=== PATIENT | female | born 1970 | race Caucasian/White ===

== ENCOUNTER 2017-04-06 19:52 | Emergency (ER) | payer OTHER, MEDICAID ==
[~2017-04-06] VITALS: Ht 162.6 cm; Wt 75.8 kg
[~2017-04-06 19:52] MED LIST: ACETAMINOPHEN-120 ML PO; ACETAMINOPHEN325 M1 PO; ADVAIR 250-501 EACH IH; AEROECLIPSE II1 EACH MC; AFRIN MENTHOL S15 ML NS; ALBUTEROL INH; ALBUTEROL2.5 MG/0.1 INH; ALBUTEROL2.5 MG/31 INH; ALL DAY ALLERGY10 M3 PO; ALLERGY RELIEF25 M2 PO; ALPRAZOLAM 0.0.25 M1 PO; AMOXICILLIN 50500 MG PO; AMOXICILLIN/POTASSIU PO; AMOXICILLIN875 MG PO; APAP/CODEINE ELI5 M1 OR; ATIVAN1 MG PO; AUGMENTIN 500-1 EACH PO; AUGMENTIN 875875 MG PO; AZITHROMYCIN 2250 MG PO; BENADRYL25 MG PO; BENTYL20 MG PO; CALCIUM ACETAT667 MG PO; CARISOPRODOL 3350 MG PO; CEFDINIR300 MG PO; CEPHALEXIN 500500 M3 PO; CIPRO HC OTIC S10 ML OT; CIPRO250 M1 PO; CIPRO500 MG PO; CIPRO500 MG/5 M PO; CIPROFLOXACIN500 M1 PO; CIPROFLOXIN HC2.5 M1 OTIC; CLEOCIN HCL150 MG PO; COLACE 100 MG100 MG PO; COLACE100 MG PO; COMBIVENT INH; CORTISPORIN OTI10 ML OT; COUMADIN 5 MG TA5 M1 PO; DELSYM30 MG/5 ML PO; DIFLUCAN; DIFLUCAN150 M1 PO; DOXYCYCLINE 10100 M1; DOXYCYCLINE 10100 MG PO; DULCOLAX5 MG PO; DUONEB 2.5-0.5 M3 ML INH; ENOXAPARIN100 MG/11 SUBQ; FENTANYL PA25 MCG/HR TP; FIORICET 50-321 EACH PO; FLAGYL 250 MG250 MG; FLAGYL500 MG; FLAGYL500 MG PO; FLEET ENEMA118 ML RC; FLEXERIL PO; FLONASE 0.05%50 MCG NASAL; FLONASE 0.05%50 MCG NS; GLUCOPHAGE500 MG PO; HYDRALAZINE 2525 M1; HYDRALAZINE 2525 M1 PO; HYDRALAZINE 2525 MG PO; HYDRALAZINE 5050 MG PO; HYDROCODON-ACE1 EAC1; HYDROCODON-ACE1 EAC5; HYDROCODON-ACE1 EAC5 PO; HYDROCODON-ACE1 EAC7 PO; HYDROCODON-ACE1 EACH PO; HYDROCODONE-AP1 EAC6 PO; KADIAN20 MG; KEFLEX500 MG; KEFLEX500 MG PO; LACTULOSE10 GM/152 PO; LASIX 40 MG TAB40 M1; LASIX 40 MG TAB40 M2 PO; LEVAQUIN 250 M250 MG PO; LEVAQUIN 500 M500 M2 PO; LEVAQUIN 500 M500 MG PO; LEVAQUIN 750 M750 MG PO; LIDOCAINE VISC100 M1 MM; LISINOPRIL10 MG; LISINOPRIL20 MG PO; LISINOPRIL5 MG OR; LOPRESSOR25 PO; LOPRESSOR50 PO; LORTAB 5 MG/5001 TA1 PO; MACROBID 100 M100 M1 PO; MEDROL2 MG PO; MEDROLDOSEPACK PO; METOPROLOL SUCC25 M1 PO; MICONAZOLE 7100 MG; MINOCIN100 MG PO; MIRALAX17 GM PO; MIRALAX255 GM PO; MORPHINE PO; MS CONTIN 30 MG30 M1 PO; MS CONTIN 30 MG30 MG; MS CONTIN15 MG PO; MS CONTIN30 MG; NEPHRO-VITE RX1 TA1 PO; NEXIUM40 MG PO; NICODERM CQ1 EAC2 TRANSDERM; NICOTINE TRANSD21 M1 TD; NICOTINE TRANSD21 M1 TOP; NORCO 5-325 TA1 EACH PO; NORVASC10 MG PO; ONDANSETRON HCL4 M2 PO; OXECTA5 MG PO; OXYBUTYNIN 5 MG5 M1 PO; OXYCODONE HCL 55 MG PO; OXYCODONE HCL15 MG PO; OXYCODONE HCL5 M1 PO; OXYCONTIN CR 1010 M1 PO; PAMELOR25 MG PO; PERCOCET 5-3251 EACH PO; PHENERGAN 25 MG25 M1 PO; PHENERGAN-CODE120 ML PO; PREDNISONE 20 M20 M1 PO; PREDNISONE 20 M20 MG PO; PREDNISONE50 MG PO; PRINIVIL PO; PRINIVIL20 MG; PRINIVIL20 MG PO; PRINIVIL40 MG PO; PRINZIDE 20-121 EACH PO; PROAIR HFA8.5 GM IH; PROAIR HFA8.5 GM INH; PROAIR HFA8.5 GM PO; PROMS25 WY RECTAL; PROTONIX40 M1 PO; PROVERA10 MG PO; PROVERA2.5 MG PO; PULMICORT0.5 MG/2 M IH; PYRIDIUM100 MG PO; PYRIDIUM200 MG PO; QVAR8.7 G1 IH; REGLAN 10 MG TA10 M1 PO; REGLAN 5 MG TAB5 M1 PO; RELISTOR12 MG/0.2; RENAL CAPS SOFTG1 MG PO; ROBAXIN 750 MG750 M1 PO; ROBAXIN 750 MG750 MG PO; ROXICODONE15 M1 PO; ROXICODONE5 MG PO; SENNA PO; SENOKOT-S1 TA1 PO; SYMBICORT160 MCG/4. INH; TESSALON PERLE100 MG PO; TESSALON200 MG PO; TOPROL XL25 MG PO; TRICOR145 MG PO; TYLENOL325 MG PO; ULTRAM 50MG TAB50 MG PO; VENTOLIN HFA 1818 GM INH; VENTOLIN HFA INH8 GM IH; VENTOLIN17 GM INH; VESICARE 5 MG TA5 MG PO; VICODIN; VICODIN 5-5001 EACH PO; VIOKACE 10,4401 EACH PO; VITAMIN D1000 UNI1 PO; XANAX 0.25 MG0.25 MG PO; XARELTO15 MG PO; ZENPEP DR 10,01 EACH; ZENPEP DR 10,01 EACH PO; ZOFRAN 4 MG ORAL4 MG PO; ZOFRAN ODT4 MG PO; ZOFRAN ODT4 MG SUBLING; ZOFRAN4 MG PO; ZPAK PO; ZYRTEC10 M1 PO; [UNRECOGNIZED DRUG - REMARK] INH
[2017-04-06] MEDS ORDERED: KEFLEX500 M1 PO (19:58)
[2017-04-06] MEDS ORDERED: PHENERGAN 25 MG25 M1 PO (19:59)
[2017-04-06 20:59] LABS: NUCLEATED RBCS 0 /100WBC
[2017-04-06 21:02] LABS: ABSOLUTE BASOPHILS 0.1 thou/uL (0.0-0.2); ABSOLUTE EOSINOPHILS 0.1 thou/uL (0.0-0.7); ABSOLUTE LYMPHOCYTES 1.8 thou/uL (0.8-5.3); ABSOLUTE MONOCYTES 0.6 thou/uL (0.0-1.2); BASOPHILS 1.1 %; EOSINOPHILS 1.4 %; HEMATOCRIT 35.4 % (37.0-47.0); HEMOGLOBIN 11.8 gm/dL (12.0-15.0); LYMPHOCYTES 21.1 %; MCH 33.8 pg (26.0-34.0); MCHC 33.3 g/dL (28.0-37.0); MCV 101.5 fL (80.0-100.0); MONOCYTES 6.9 %; MPV 8.7 fl. (7.2-11.1); PLATELET COUNT* 171 thou/uL (150-400); POLYS 69.5 %; RBC 3.49 mil/uL (4.20-5.00); RDW-CV 15.9 % (10.5-14.5); WBC 8.6 thou/uL (4.0-11.0)
[2017-04-06 21:13] LABS: ANION GAP 15 mmol/L (7-16); BUN 64 mg/dL (7-18); CALCIUM 8.6 mg/dL (8.5-10.1); CHLORIDE 94 mmol/L (98-107); CO2 25 mmol/L (21-32); CREATININE 8.3 mg/dL (0.6-1.3); GLUCOSE 81 mg/dL (70-99); SODIUM 134 mmol/L (136-145)
[2017-04-06 21:14] LABS: POTASSIUM 6.6 mmol/L (3.5-5.1)
[2017-04-06 21:15] LABS: APTT 26.8 Seconds (25.0-31.3); INR 1.3; PROTIME 12.9 Seconds (9.20-11.50)
[2017-04-06 21:24] LABS: ALBUMIN 3.5 g/dL (3.4-5.0); ALKALINE PHOSPHATASE 218 U/L (46-116); LIPASE 160 U/L (73-393); NT-PRO BRAIN NAT PEPTIDE > 35000 pg/mL (<300); SGOT 105 U/L (15-37); SGPT 94 U/L (30-65); TOTAL BILIRUBIN 0.7 mg/dL (<0.1-1.0); TOTAL PROTEIN 7.2 g/dL (6.4-8.2); TROPONIN-I LEVEL <0.06 ng/mL (<0.06)
[2017-04-06 23:21] LABS: URINE BLOOD 3+ (Negative); URINE CLARITY CLOUDY; URINE COLOR BROWN; URINE GLUCOSE-RANDOM 1+ (Negative); URINE KETONES NEGATIVE (Negative); URINE LEUKOCYTES-REFLEX NEGATIVE (Negative); URINE NITRITE-REFLEX NEGATIVE (Negative); URINE PROTEIN 3+ (Negative); URINE UROBILINOGEN 0.2 E.U./dl (0.2-1.0)
[2017-04-06 23:25] LABS: URINE BILIRUBIN 2+ (Negative)
[2017-04-06 23:28] LABS: ICTOTEST (BILI CONFIRMATORY) Negative (Negative)
[2017-04-06] MEDS ORDERED: ZOFRAN ODT4 MG PO (23:32)
[2017-04-06] MEDS ORDERED: MIRALAX17 GM PO (23:32)
[2017-04-06 23:44] VITALS: BP 177/85
[2017-04-07 00:02] LABS: SQUAMOUS >10 Many /LPF (0-3)
[2017-04-07 00:03] LABS: CASTS None Seen /LPF (None Seen)
[2017-04-07 00:04] LABS: BACTERIA-REFLEX >30 Many /HPF (None Seen); CRYSTALS None Seen /LPF (None Seen); URINE RBC >20 Many /HPF (0-2)
--- NOTE | 2017-04-07 14:38 | EKG ---
[place] [address] ELECTROCARDIOGRAM REPORT Name: MICHELLE CONCEPCION Room: [facility]#: [id number] Admission: 04/06/17 Attend Phys: Discharge: 04/06/17 Date of : 68 Report #: [id number] THIS REPORT FOR: //name// [facility] ED Test Date: 2017-04-06 Test Time: 21:09:00 Pat Name: MICHELLE OLIVERA Department: Room: Gender: F Golf Ball Trimmer: TERRA : 1970 Requested By: Harriet Kim Order Number: [id number] MD: Jose Baires Measurements Intervals [place] Rate: 65 P: 43 AK: 138 QRS: 18 QRSD: 109 T: 25 QT: 446 QTc: 464 Interpretive Statements Sinus rhythm LAE, consider biatrial enlargement Minimal ST depression, inferior leads Compared to ECG 01/28/2017 20:33:45 ST (T wave) deviation now present Electronically Signed On 04-07-2017 14:38:06 COMMERCIAL REAL ESTATE AGENT by Jose Baires [email or web address] <ELECTRONICALLY SIGNED> By: Jose Baires MD, [facility] 04/07/17 1438 08 08 Jose Baires MD, [facility] /EPI
== END 2017-04-06 23:45 | disposition home or self-care (01) ==
LOC: M.ERS 19:52
PROVIDERS: Physician Assistant
DX: R06.02 Shortness of breath (principal); R11.2 Nausea with vomiting, unspecified; I12.0 Hypertensive chronic kidney disease with stage 5 chronic kidney disease or end stage renal disease; E11.22 Type 2 diabetes mellitus with diabetic chronic kidney disease; N18.6 End stage renal disease; E87.5 Hyperkalemia; K59.00 Constipation, unspecified; J45.909 Unspecified asthma, uncomplicated; F31.9 Bipolar disorder, unspecified; J44.9 Chronic obstructive pulmonary disease, unspecified; F41.9 Anxiety disorder, unspecified; E78.00 Pure hypercholesterolemia, unspecified; E66.9 Obesity, unspecified; F17.210 Nicotine dependence, cigarettes, uncomplicated; Z88.6 Allergy status to analgesic agent; Z99.2 Dependence on renal dialysis; Z98.890 Other specified postprocedural states; Z88.5 Allergy status to narcotic agent; Z88.2 Allergy status to sulfonamides; Z88.8 Allergy status to other drugs, medicaments and biological substances

== ENCOUNTER 2017-07-23 17:25 | Observation (INO) | payer OTHER, MEDICAID ==
[~2017-07-23] VITALS: Ht 162.6 cm; Wt 86.2 kg
[~2017-07-23 17:25] MED LIST changes: +KEFLEX500 M1 PO
[2017-07-23 18:03] VITALS: BP 152/88
[2017-07-23] MEDS ORDERED: SENSIPAR 30 MG30 M1 PO (18:12)
[2017-07-23] MEDS ORDERED: ALBUTEROL2.5 MG/31 INH (18:13)
[2017-07-23] MEDS ORDERED: ADVAIR 250-501 EACH INH (18:14)
--- NOTE | 2017-07-23 18:25 | NUR ---
PT STATES CANNOT URINATE AT THIS TIME DUE TO KIDNEY DISEASE, DOES NOT URINATE MUCH REGULARLY DUE TO DISEASE.
[2017-07-23 18:49] LABS: ABSOLUTE BASOPHILS 0.1 thou/uL (0.0-0.2); ABSOLUTE EOSINOPHILS 0.2 thou/uL (0.0-0.7); ABSOLUTE MONOCYTES 0.6 thou/uL (0.0-1.2); ABSOLUTE NEUTROPHILS 6.1 thou/uL (1.6-8.1); BASOPHILS 1.2 %; EOSINOPHILS 2.6 %; HEMATOCRIT 36.5 % (37.0-47.0); HEMOGLOBIN 12.1 gm/dL (12.0-15.0); LYMPHOCYTES 22.4 %; MCH 33.9 pg (26.0-34.0); MCHC 33.2 g/dL (28.0-37.0); MONOCYTES 6.6 %; MPV 7.7 fl. (7.2-11.1); NUCLEATED RBCS 0 /100WBC; PLATELET COUNT* 210 thou/uL (150-400); POLYS 67.2 %; RBC 3.58 mil/uL (4.20-5.00); RDW-CV 15.6 % (10.5-14.5)
[2017-07-23 18:56] LABS: CALCIUM 8.5 mg/dL (8.5-10.1); CREATININE 12.1 mg/dL (0.6-1.3)
[2017-07-23 19:01] LABS: ALBUMIN 3.4 g/dL (3.4-5.0); TOTAL BILIRUBIN 0.6 mg/dL (<0.1-1.0); TOTAL PROTEIN 7.4 g/dL (6.4-8.2)
[2017-07-23 20:48] VITALS: BP 165/92
[2017-07-23 20:50] VITALS: BP 149/74
--- NOTE | 2017-07-23 20:50 | NUR ---
PT ADMITTED TO FLOOR PER CART ACCOMPANIED BY ER STAFF WITH BELONGINGS. ORIENTED TO ROOM AND CALL LITE. AOX4, APPEARS SLIGHTLY DROWSY. CO ANA LUISA LEG AND ARM PAIN AND SHAKINESS. REQUESTING IV PAIN MED, STATING HYDROCODONE DOES NOT WORK-DR TO BE NOTIFIED. TELE SR PVC. CALL LITE IN EASY REACH, BED ALARM ON FOR SAFETY. SEE ADMIT HISTORY AND ASSESSMENT NOTES.
[2017-07-23 22:48] LABS: CALCIUM 9.3 mg/dL (8.5-10.1); CREATININE 12.7 mg/dL (0.6-1.3)
[2017-07-23 22:50] LABS: POTASSIUM 6.6 mmol/L (3.5-5.1)
[2017-07-23] MEDS ORDERED: GABAPENTIN 100100 MG PO (23:15)
[2017-07-24 00:20] VITALS: BP 180/97
--- NOTE | 2017-07-24 06:40 | NUR ---
NEW ADMIT THIS SHIFT. PT CO ANA LUISA LEG AND ARM PAIN AND CRAMPING AND WEAKNESS. OXY IR AND FENTANYL GIVEN ORDERED FOR PAIN CONTROL. O2 2L PLACED ON PT WHILE SLEEPING TO KEEP SATS >92%. RFA SL. LUPPER ARM FISTULA. TELE SR. NEPHROLOGY DR NOTIFIED THIS MORNING OF CONSULT FOR DIALYSIS, STATES HE WILL TAKE CARE OF IT. SEVERAL MUSHY UNFORMED BMS OVERNIGHT. ABLE TO USE CALL LITE AND MAKE NEEDS KNOWN.
[2017-07-24 07:57] VITALS: BP 129/71
[2017-07-24 10:13] LABS: CALCIUM 8.2 mg/dL (8.5-10.1); CREATININE 12.5 mg/dL (0.6-1.3)
[2017-07-24 10:16] LABS: POTASSIUM 5.4 mmol/L (3.5-5.1)
--- NOTE | 2017-07-24 14:00 | NUR ---
PT.IN DIALYSIS AT PRESENT.
[2017-07-24 15:00] VITALS: BP 180/96
--- NOTE | 2017-07-24 16:28 | EKG ---
[place] [address] ELECTROCARDIOGRAM REPORT Name: MICHELLE CONCEPCION Room: [address] ADM IN .R.#: [id number] Admission: 07/23/17 Attend Phys: Nakita Mckinley Discharge: Date of : 68 Report #: [id number] THIS REPORT FOR: //name// [facility] ED Test Date: 2017-07-23 Test Time: 18:24:58 Pat Name: MICHELLE OLIVERA Department: Room: [facility] Gender: F Clinical Biostatistics Director: Carlene EGAN : 1970 Requested By: Patrice Morgan Order Number: [id number] MD: Jose Baires Measurements Intervals [place] Rate: 63 P: 59 LA: 196 QRS: -76 QRSD: 132 T: 20 QT: 483 QTc: 495 Interpretive Statements Sinus rhythm Left atrial enlargement RBBB and LAFB Left ventricular hypertrophy Anterior Q waves, possibly due to anterior CA, old or age indeterminant Compared to ECG 04/06/2017 21:09:00 Left anterior fascicular block now present Right bundle-branch block now present Left ventricular hypertrophy now present Q waves now present ST (T wave) deviation no longer present Electronically Signed On 4-24-2018 16:28:29 CDT by Jose Baires [email or web address] <ELECTRONICALLY SIGNED> By: Jose Baires MD, [facility] 07/24/17 1628 1824 1824 Jose Baires MD, [facility] /EPI
--- NOTE | 2017-07-24 17:25 | NUR ---
PATIENT A&OX4, 2L O2 VIA NC, IV RIGHT FOREARM SALINE LOCK. UP WITH STAND BY ASSIST, STEADY GAIT. C/O LEG PAIN, PARTIAL RELIEF WITH MEDICATION. DIALYSIS TODAY, POTASSIUM LEVEL NOW WITHIN NORMAL LIMITS. WANTING TO START SCIENCE MANAGER VELTAFELISAA, CONSULTING CASE MANAGEMENT FOR COST EVAL. NO OTHER CONCERNS AT THIS TIME. APPROPRIATE AND COOPORATIVE WITH CARE.
[2017-07-24 18:18] VITALS: BP 180/96
--- NOTE | 2017-07-24 18:58 | NUR ---
PATIENT STATING SHE CAN NOT STAY THE NIGHT, NEEDS TO BE DISCHARGED TONIGHT. UNABLE TO STAY WITH MOTHER ADMITTED TO HOSPITAL WELL, NEED TO TAKE CARE OF OTHER FAMILY MEMBERS. CALLED SCANNING CLERK PHYSICIAN, STATED TO DISCHARGE HOME, CONTINUE HOME MEDICATION. REVIEWED DISCHARGE PAPERWORK WITH PATIENT, WHILE FAMILY AT BEDSIDE. VERBALIZES UNDERSTANDING, NO FURTHER QUESTIONS AT THIS TIME. ENCOURAGED TO FOLLOW UP WITH PRIMARY CARE PROVIDER IN REQUARDS TO MANAGING POTASSIUM LEVELS. LEFT UNIT AT 1855, AMBULATORY, WITH ALL BELONGIGNS, NOTHING LEFT BEHIND.
--- NOTE | 2017-07-25 16:44 | CON ---
[address] [address] CONSULTATION Name: MICHELLE CONCEPCION Room: [address] Robby Brown#: [id number] Admission: 07/23/17 Attend Phys: Nakita Mckinley Discharge: 07/24/17 Date of : 68 Report #: [id number] THIS REPORT FOR: //name// CC: BREANA Espinoza DATE OF SERVICE: 07/24/2017 CONSULTING PHYSICIAN: REASON FOR NEPHROLOGY CONSULTATION: Hyperkalemia, missed dialysis, end-stage renal disease. CHIEF COMPLAINT: The patient was complaining of shaky legs and she thought that her potassium is high. She missed her dialysis on Sunday. HISTORY OF PRESENT ILLNESS: This is a 47-year-old female who has past medical history of end-stage renal disease on hemodialysis every Sunday, and Sunday; diabetic and hypertensive nephropathy, not compliant with dialysis treatments, missed her dialysis on Sunday because as per her dialysis center asked all patients to go home. I am pretty sure that the patient was supposed to be rescheduled for dialysis, but anyway, the patient came in last night because of shaky legs, extreme weakness. She was found to have a potassium of 8, which was medically treated and this morning was 6.6. She does not make much urine. She has some trouble breathing as well. Arrangements for dialysis needed to be made and hence Nephrology was consulted. REVIEW OF SYSTEMS: Weakness and some shortness of breath and other review of systems were done and they were negative. PAST MEDICAL HISTORY: Includes history of chronic pancreatitis, hypertension, diabetes type 2, end-stage renal disease, on hemodialysis; bipolar disorder, anxiety, asthma, irritable bowel syndrome. PAST SURGICAL HISTORY: Includes cholecystectomy, left arm AV fistula with good bruit and good thrill, appendectomy, tubal ligation, some rods in her anterior neck. HOME MEDICATIONS: Include Zofran, ipratropium, metoprolol, hydralazine, folic acid, alprazolam, Nexium, oxycodone, promethazine, cinacalcet, albuterol, fluticasone. ALLERGIES: ASPIRIN, CARBAMAZEPINE, NAPROXEN, IBUPROFEN, PROPOXYPHENE, RASPBERRY, SULFA, TRAMADOL, PROCHLORPERAZINE. FAMILY HISTORY: Not [place] [address] CONSULTATION Name: MICHELLE CONCEPCION [address]: [address]#: [id number] Admission: 07/23/17 Attend Phys: Nakita Mckinley Discharge: 07/24/17 Date of : 68 Report #: [id number] SOCIAL HISTORY: She still smokes half pack a day. No history of alcohol use or recreational drug use reported by the patient. PHYSICAL EXAMINATION: VITAL SIGNS: Blood pressure is 129/71, respiratory rate 18, pulse rate is 66, temperature 36.7, pulse ox, the patient was in room air 95%. GENERAL: She is awake, alert, oriented x 3. HEAD, EYES, EARS, NOSE, THROAT: Mucous membranes are moist. NECK: There is no JVD. CHEST: Clear to auscultation bilaterally. No crackles or wheezing. CARDIOVASCULAR: S1, S2 normal. No murmurs. ABDOMEN: Soft, nontender, nondistended. Bowel sounds are present. EXTREMITIES: She has a left arm AV fistula with good bruit and good thrill. Lower extremities are symmetrical. No edema. NEUROLOGICAL: Gross neurological functions intact. PSYCHIATRIC: Mood and affect seem to be normal. LABORATORY DATA: They were reviewed this morning, hemoglobin was 12.1, sodium was 137 and potassium was 6.6 and BUN was 134. Other labs were reviewed. IMAGING: Chest x-ray was reviewed. ASSESSMENT AND PLAN: 1. End-stage renal disease because of diabetes and hypertension, on hemodialysis every Sunday, and Sunday, missed her dialysis: The patient will be dialyzed today and her potassium will be rechecked 2 hours after her dialysis. She has a left arm AV fistula, which is used for dialysis. 2. Anemia of chronic kidney disease: Hemoglobin is currently at goal of 12.1. No need for Epogen or iron. 3. Hyperkalemia: This is because of end-stage renal disease; should get better after dialysis. The patient should be on a low potassium diet. 4. Hypertension: Her home blood pressure medication regimen should be started and with fluid removal also her blood pressure should stay controlled. 5. Diabetes type 2: Management of this will be deferred to primary team. 6. Left basilar infiltrate: The patient is not demonstrating any signs or symptoms of pneumonia, but I will defer this to primary. 7. Secondary hyperparathyroidism: We will check her phosphorus tomorrow if she stays in the hospital. Thank you for this consultation. We will continue to follow along with you for [address] [address] CONSULTATION Name: MICHELLE CONCEPCION Room: [address] Robby Brown#: [id number] Admission: 07/23/17 Attend Phys: Nakita Mckinley Discharge: 07/24/17 Date of : 68 Report #: [id number] her dialysis needs. If after her dialysis her potassium is in the normal range, she is okay to be discharged from renal standpoint. <ELECTRONICALLY SIGNED> By: Mercedes Marte MD 07/25/17 1644 0956 1820Mercedes Marte MD /nt
== END 2017-07-24 18:55 | disposition home or self-care (01) ==
LOC: M.ERS 17:25 → M.TBA-ER 19:26 → M.3W 19:26
PROVIDERS: Internal Medicine; Nurse Practitioner Psychiatric/Mental Health; ADMIT Internal Medicine
DX: E87.5 Hyperkalemia (principal); I12.0 Hypertensive chronic kidney disease with stage 5 chronic kidney disease or end stage renal disease; N18.6 End stage renal disease; E11.22 Type 2 diabetes mellitus with diabetic chronic kidney disease; D63.1 Anemia in chronic kidney disease; N25.81 Secondary hyperparathyroidism of renal origin; F31.9 Bipolar disorder, unspecified; J45.909 Unspecified asthma, uncomplicated; F41.9 Anxiety disorder, unspecified; R91.8 Other nonspecific abnormal finding of lung field; F17.210 Nicotine dependence, cigarettes, uncomplicated; Z99.2 Dependence on renal dialysis; Z98.890 Other specified postprocedural states

== ENCOUNTER 2017-08-11 17:02 | Inpatient (IN) | payer OTHER, MEDICAID ==
[~2017-08-11] VITALS: Ht 162.6 cm; Wt 74.4 kg
[~2017-08-11 17:02] MED LIST changes: +ADVAIR 250-501 EACH INH; +GABAPENTIN 100100 MG PO; +SENSIPAR 30 MG30 M1 PO
[2017-08-11 17:06] VITALS: BP 158/87
[2017-08-11 17:47] LABS: ABSOLUTE BASOPHILS 0.1 thou/uL (0.0-0.2); ABSOLUTE EOSINOPHILS 0.3 thou/uL (0.0-0.7); ABSOLUTE LYMPHOCYTES 2.2 thou/uL (0.8-5.3); ABSOLUTE MONOCYTES 0.5 thou/uL (0.0-1.2); BASOPHILS 0.9 %; EOSINOPHILS 3.2 %; HEMATOCRIT 36.7 % (37.0-47.0); HEMOGLOBIN 12.2 gm/dL (12.0-15.0); LYMPHOCYTES 24.7 %; MCH 33.9 pg (26.0-34.0); MCHC 33.3 g/dL (28.0-37.0); MCV 101.8 fL (80.0-100.0); MPV 7.8 fl. (7.2-11.1); NUCLEATED RBCS 0 /100WBC; PLATELET COUNT* 191 thou/uL (150-400); POLYS 66.2 %; RDW-CV 14.7 % (10.5-14.5)
[2017-08-11 17:57] LABS: ANION GAP 15 mmol/L (7-16); BUN 79 mg/dL (7-18); CALCIUM 7.6 mg/dL (8.5-10.1); CHLORIDE 96 mmol/L (98-107); CO2 24 mmol/L (21-32); CREATININE 9.6 mg/dL (0.6-1.3); GLUCOSE 144 mg/dL (70-99); INR 1.1; PROTIME 10.5 Seconds (9.20-11.50); SODIUM 135 mmol/L (136-145)
[2017-08-11 18:01] LABS: POTASSIUM 6.5 mmol/L (3.5-5.1)
[2017-08-11 18:08] LABS: ALBUMIN 3.3 g/dL (3.4-5.0); ALKALINE PHOSPHATASE 233 U/L (46-116); NT-PRO BRAIN NAT PEPTIDE 18927 pg/mL (<300); SGOT 16 U/L (15-37); SGPT 20 U/L (30-65); TOTAL BILIRUBIN 0.4 mg/dL (<0.1-1.0); TOTAL PROTEIN 7.1 g/dL (6.4-8.2); TROPONIN-I LEVEL <0.06 ng/mL (<0.06)
[2017-08-11 19:49] VITALS: BP 141/78
[2017-08-12 01:31] LABS: HEMATOCRIT 38.8 % (37.0-47.0); HEMOGLOBIN 12.9 gm/dL (12.0-15.0); MCH 33.6 pg (26.0-34.0); MCHC 33.2 g/dL (28.0-37.0); MPV 7.8 fl. (7.2-11.1); RBC 3.84 mil/uL (4.20-5.00); RDW-CV 14.5 % (10.5-14.5); WBC 9.9 thou/uL (4.0-11.0)
[2017-08-12 01:41] LABS: MAGNESIUM 2.2 mg/dL (1.8-2.4)
[2017-08-12 01:47] LABS: CREATININE 5.3 mg/dL (0.6-1.3); POTASSIUM 4.6 mmol/L (3.5-5.1)
[2017-08-12 04:00] VITALS: BP 121/77
[2017-08-12 07:40] VITALS: BP 122/72
[2017-08-12 11:31] VITALS: BP 109/56
--- NOTE | 2017-08-12 13:20 | EKG ---
[place] [address] ELECTROCARDIOGRAM REPORT Name: MICHELLE CONCEPCION Room: [address] IN [facility]#: [id number] Admission: 08/11/17 Attend Phys: Nestor Powell, Discharge: Date of : 68 Report #: [id number] THIS REPORT FOR: //name// [facility] ED Test Date: 2017-08-11 Test Time: 17:17:33 Pat Name: MICHELLE OLIVERA Department: Room: Gender: Tomato Paste Maker: MS : 1970 Requested By: Avi Kenny Order Number: [id number] MD: Jose Baires Measurements Intervals [place] Rate: 78 P: 52 TN: 150 QRS: 12 QRSD: 110 T: 21 QT: 429 QTc: 489 Interpretive Statements Sinus rhythm Probable left atrial enlargement Borderline T wave abnormalities ST elev, probable normal early repol pattern Borderline prolonged QT interval Baseline wander in lead(s) II Compared to ECG 07/23/2017 18:24:58 T-wave abnormality now present ST (T wave) deviation now present Left anterior fascicular block no longer present Electronically Signed On 08-12-2017 13:20:38 CDT by Jose Baires [email or web address] <ELECTRONICALLY SIGNED> By: Jose Baires MD, [facility] 08/12/17 1320 1717 1717 Jose Baires MD, [facility] /EPI
== END 2017-08-12 12:55 | disposition left against medical advice (07) | DRG 640 ==
LOC: M.ERS 17:02 → M.TBA-ER 18:08 → M.2W 21:19
PROVIDERS: Family Medicine; ADMIT Family Medicine
DX: E87.5 Hyperkalemia (principal); N18.6 End stage renal disease; I12.0 Hypertensive chronic kidney disease with stage 5 chronic kidney disease or end stage renal disease; F31.9 Bipolar disorder, unspecified; F41.9 Anxiety disorder, unspecified; E11.22 Type 2 diabetes mellitus with diabetic chronic kidney disease; K58.9 Irritable bowel syndrome, unspecified; D63.1 Anemia in chronic kidney disease; K21.9 Gastro-esophageal reflux disease without esophagitis; J44.9 Chronic obstructive pulmonary disease, unspecified; F17.210 Nicotine dependence, cigarettes, uncomplicated; Z99.2 Dependence on renal dialysis; Z91.15 Patient's noncompliance with renal dialysis; Z90.49 Acquired absence of other specified parts of digestive tract; Z79.51 Long term (current) use of inhaled steroids; Z79.899 Other long term (current) drug therapy; Z88.6 Allergy status to analgesic agent; Z88.2 Allergy status to sulfonamides; Z88.8 Allergy status to other drugs, medicaments and biological substances; Z82.49 Family history of ischemic heart disease and other diseases of the circulatory system; Z83.3 Family history of diabetes mellitus

== ENCOUNTER 2017-11-10 09:31 | Emergency (ER) | payer OTHER, MEDICAID ==
[~2017-11-10] VITALS: Ht 167.6 cm; Wt 90.7 kg
[2017-11-10] MEDS ORDERED: NORCO 5-325 TA1 EACH PO (10:50)
[2017-11-10] MEDS ORDERED: KEFLEX500 M1 PO (10:50)
[2017-11-10 11:08] VITALS: BP 146/95
== END 2017-11-10 11:09 | disposition home or self-care (01) ==
LOC: M.ERS 09:31
DX: S96.812A Strain of other specified muscles and tendons at ankle and foot level, left foot, initial encounter (principal); L03.116 Cellulitis of left lower limb; J44.9 Chronic obstructive pulmonary disease, unspecified; F31.9 Bipolar disorder, unspecified; E11.22 Type 2 diabetes mellitus with diabetic chronic kidney disease; I12.0 Hypertensive chronic kidney disease with stage 5 chronic kidney disease or end stage renal disease; N18.5 Chronic kidney disease, stage 5; F17.210 Nicotine dependence, cigarettes, uncomplicated; Z99.2 Dependence on renal dialysis; Z88.2 Allergy status to sulfonamides; Z88.6 Allergy status to analgesic agent; Z88.8 Allergy status to other drugs, medicaments and biological substances; X58.XXXA Exposure to other specified factors, initial encounter; Y93.9 Activity, unspecified; Y92.89 Other specified places as the place of occurrence of the external cause; Y99.8 Other external cause status

== ENCOUNTER 2018-01-24 08:36 | Observation (INO) | payer OTHER, MEDICAID ==
[~2018-01-24] VITALS: Ht 160 cm; Wt 84.8 kg
[2018-01-24 08:37] VITALS: BP 160/74
[2018-01-24 09:07] LABS: ABSOLUTE BASOPHILS 0.1 thou/uL (0.0-0.2); ABSOLUTE EOSINOPHILS 0.2 thou/uL (0.0-0.7); ABSOLUTE LYMPHOCYTES 1.9 thou/uL (0.8-5.3); ABSOLUTE MONOCYTES 0.4 thou/uL (0.0-1.2); ABSOLUTE NEUTROPHILS 5.8 thou/uL (1.6-8.1); BASOPHILS 0.9 %; EOSINOPHILS 2.6 %; HEMATOCRIT 28.7 % (37.0-47.0); HEMOGLOBIN 9.8 gm/dL (12.0-15.0); LYMPHOCYTES 23.1 %; MCH 34.2 pg (26.0-34.0); MCV 100.6 fL (80.0-100.0); MONOCYTES 5.1 %; MPV 7.1 fl. (7.2-11.1); NUCLEATED RBCS 0 /100WBC; PLATELET COUNT* 222 thou/uL (150-400); POLYS 68.3 %; RBC 2.85 mil/uL (4.20-5.00); RDW-CV 14.4 % (10.5-14.5); WBC 8.4 thou/uL (4.0-11.0)
[2018-01-24 09:14] LABS: ANION GAP 6 mmol/L (7-16); BUN 21 mg/dL (7-18); CALCIUM 9.1 mg/dL (8.5-10.1); CHLORIDE 99 mmol/L (98-107); CO2 31 mmol/L (21-32); GLUCOSE 96 mg/dL (70-99); POTASSIUM 3.4 mmol/L (3.5-5.1); SODIUM 136 mmol/L (136-145)
[2018-01-24 09:18] LABS: APTT 28.9 Seconds (25.0-31.3); INR 1.1; PROTIME 10.8 Seconds (9.20-11.50)
[2018-01-24 09:25] LABS: ALBUMIN 3.1 g/dL (3.4-5.0); ALKALINE PHOSPHATASE 233 U/L (46-116); LIPASE 182 U/L (73-393); MAGNESIUM 1.9 mg/dL (1.8-2.4); NT-PRO BRAIN NAT PEPTIDE > 35000 pg/mL (<300); SGOT 12 U/L (15-37); SGPT 16 U/L (30-65); TOTAL BILIRUBIN 0.4 mg/dL (<0.1-1.0); TOTAL PROTEIN 7.1 g/dL (6.4-8.2); TROPONIN-I LEVEL 0.07 ng/mL (<0.06)
[2018-01-24 13:35] VITALS: BP 167/66
--- NOTE | 2018-01-24 16:37 | EKG ---
[place] [address] ELECTROCARDIOGRAM REPORT Name: TRACEE OLIVERASILVANONOHEMIWill Bahena Room: [place] [address] ADM IN ..#: [id number] Admission: 01/24/18 Attend Phys: Kasie Galvan MD Discharge: Date of : 68 Report #: [id number] THIS REPORT FOR: //name// [facility] ED Test Date: 2018-01-24 Test Time: 08:37:15 Pat Name: MICHELLE OLIVERA Department: Room: [facility] Gender: F E Commerce Strategist: Carlene EGAN : 1970 Requested By: Pillo Lazo Order Number: [id number] MD: Prateek Aragon Measurements Intervals [place] Rate: 80 P: 47 ND: 168 QRS: 60 QRSD: 114 T: -21 QT: 413 QTc: 477 Interpretive Statements Sinus rhythm LAE, consider biatrial enlargement Incomplete right bundle branch block Left ventricular hypertrophy Compared to ECG 08/11/2017 17:17:33 Left ventricular hypertrophy now present Electronically Signed On 01-24-2018 16:36:59 CDT by Prateek Aragon [email or web address] <ELECTRONICALLY SIGNED> By: Prateek Aragon MD, FAC 01/24/18 1636 0837 0837 Prateek Aragon MD, [facility] /EPI
[2018-01-24 16:50] VITALS: BP 181/83
[2018-01-24 17:02] VITALS: BP 153/75
--- NOTE | 2018-01-24 18:23 | NUR ---
PT TO UNIT APPROX 1700. ORIENTED X4, BUT FALLING ASLEEP THROUGHOUT CONVERSATION, DOES C/O CP AND "CHRONIC NECK AND BACK PAIN"- MEDICATED PER EMAR. PT INSTRUCTED ON SAFETY AND USE OF CALL LIGHT FOR ASSIST. PLEASE SEE ASSESSMENT FOR ADDITIONAL INFORMATION. WILL CONT TO MONITOR
[2018-01-24 20:00] VITALS: BP 138/66
--- NOTE | 2018-01-24 23:11 | NUR ---
ASSUMED PT CARE REPORT RECEIVED FROM NURSE. PT IS ALERT AWAKE ORIENTED X4 SINUS RYTHM ON THE STATION MECHANIC. VSS. MEDS GIVEN ORDERED. PT SAYS SHE WENT TO HAVE DIALYSIS TODAY BUT DID NOT STAY BECAUSE SHE HAD CHEST PAIN. SHE IS FREE FROM PAIN AT THIS MOMENT. WILL BE NPO AFTER MIDNIGHT FOR CARDIO CONSULT. ORDER TO OBTAIN EKG REPORT FROM [facility]. WILL CALL AND GET THE NECESSARY INFO ORDERED. ( SEE ORDERS) WILL CONTINUE TO MONITOR.
[2018-01-25 00:59] VITALS: BP 117/50
[2018-01-25 04:46] LABS: HEMATOCRIT 27.7 % (37.0-47.0); HEMOGLOBIN 9.2 gm/dL (12.0-15.0); MCH 33.5 pg (26.0-34.0); MCHC 33.2 g/dL (28.0-37.0); MPV 7.4 fl. (7.2-11.1); RBC 2.74 mil/uL (4.20-5.00); RDW-CV 14.6 % (10.5-14.5); WBC 6.7 thou/uL (4.0-11.0)
[2018-01-25 04:50] VITALS: BP 137/56
[2018-01-25 05:03] LABS: ALBUMIN 2.8 g/dL (3.4-5.0); ALKALINE PHOSPHATASE 208 U/L (46-116); ANION GAP 5 mmol/L (7-16); BUN 43 mg/dL (7-18); CHLORIDE 100 mmol/L (98-107); CHOLESTEROL 121 mg/dL (<200); CO2 30 mmol/L (21-32); GLUCOSE 75 mg/dL (70-99); HDL CHOLESTEROL 39 mg/dL (>40); LDL CHOLESTEROL 62 mg/dL (<100); MAGNESIUM 2.4 mg/dL (1.8-2.4); SGOT 10 U/L (15-37); SGPT 13 U/L (30-65); SODIUM 135 mmol/L (136-145); TC:HDL 3.1 Ratio (Not establshd); TOTAL BILIRUBIN 0.4 mg/dL (<0.1-1.0); TOTAL PROTEIN 5.7 g/dL (6.4-8.2); TRIGLYCERIDE 100 mg/dL (<150); TROPONIN-I LEVEL <0.06 ng/mL (<0.06); VLDL 20 mg/dL (<40)
[2018-01-25 05:04] LABS: CREATININE 6.5 mg/dL (0.6-1.3); POTASSIUM 5.8 mmol/L (3.5-5.1)
[2018-01-25 05:06] LABS: SERUM ASSESSMENT Clear
[2018-01-25 07:50] VITALS: BP 142/59
--- NOTE | 2018-01-25 11:25 | NUR ---
RECEIVED REPORT FROM ERICK AND ASSUMED CARE OF PT @ 8758.PT IS A/O X4,VSS,TRACING SB ON THE MONITOR.METOPROLOL HELD-DUE TO LOW PULSE.ASSESSMENT CHARTED.IV PATENT AND SALINE LOCKED.PT C/O RIGHT SHOULDER PAIN-RELIEF WITH PAIN MEDICATIONS.PT IS IRRITABLE BUT COOPERATIVE.UP WITH ASSIST IN ROOM.PT LEFT IN ROOM WITH CALL LIGHT AND FALL PRECAUTIONS IN PLACE. WILL CONTINUE TO MONITOR. PT TAKEN TO DIALYSIS THIS AM.
--- NOTE | 2018-01-25 11:45 | NUR ---
Nutrition: Consult received for renal diet questions. Pt was out of room a ttism of visit, 13:35. RD left stage 5 renal diet educ packet on pt's bedside table. RD contact info provided for pt to call with further questions.
--- NOTE | 2018-01-25 13:59 | NUR ---
Pt out of room at dialysis, CM to assess later
--- NOTE | 2018-01-25 14:29 | 2DMMODE ---
[place] [address] 2 D/M-MODE ECHOCARDIOGRAM Name: MICHELLE CONCEPCION Room: [address] IN [facility]#: [id number] Admission: 01/24/18 Attend Phys: Kasie Galvan, Discharge: Date of : 68 Date of Service: 01/25/18 1428 Report #: [id number] THIS REPORT FOR: //name// APPROVED REPORT Study performed: 01/25/2018 13:45:26 EXAM: Comprehensive 2D, Doppler, and color-flow Echocardiogram Patient Location: In-Patient Room #: 222 Status: routine BSA: 1.88 HR: 72 bpm BP: 142/59 mmHg Rhythm: NSR Other Information Study Quality: Good Indications Elevated Troponin Chest Pain 2D Dimensions IVSd: 16.76 (7-11mm) LVOT Diam: 21.27 (18-24mm) LVDd: 53.71 mm PWd: 12.88 (7-11mm) Ascending Ao: 33.08 (22-36mm) LVDs: 34.29 (25-40mm) Aortic Root: 29.53 mm Volumes Left Atrial Volume (Systole) LA ESV Index: 60.00 mL/m2 Aortic Valve AoV Peak Leandro.: 1.97 m/s AO Peak Gr.: 15.58 mmHg LVOT Max P.00 mmHg AO Mean Gr.: 7.62 mmHg LVOT Mean P.93 mmHg LVOT Max V: 1.32 m/s AO V2 VTI: 39.10 cm LVOT Mean V: 0.77 m/s KIRSTY (VTI): 2.55 cm2 LVOT V1 VTI: 28.08 cm Mitral Valve MV Mean Gr.: 4.17 mmHg E/A Ratio: 1.44 MV Decel. Time: 356.45 [place] [address] 2 D/M-MODE ECHOCARDIOGRAM Name: MICHELLE CONCEPCION Room: [address] IN [facility].#: [id number] Admission: 01/24/18 Attend Phys: Kasie Galvan, Discharge: Date of : 68 Date of Service: 01/25/18 1428 Report #: [id number] MV E Max Leandro.: 1.80 m/s MV PHT: 103.37 ms MVA (PHT): 2.13 cm2 TDI E/Lateral E': 30.00 E/Medial E': 22.50 Medial E' Leandro.: 0.08 m/s Lateral E' Leandro.: 0.06 m/s Pulmonary Valve PV Peak Leandro.: 1.19 m/s PV Peak Gr.: 5.71 mmHg Tricuspid Valve RAP Estimate: 5.00 mmHg TR Peak Gr.: 35.87 mmHg RVSP: 41.00 mmHg PA Pressure: 41.00 mmHg Left Ventricle The left ventricle is normal size. There is normal LV segmental wall motion. Mild to moderate concentric left ventricular hypertrophy. Left ventricular systolic function is normal. The left ventricular ejection fraction is within the normal range. LVEF is 55-60%. The left ventricular diastolic function is normal. Right Ventricle The right ventricle is normal size. The right ventricular systolic function is normal. Atria Left atrium is severely dilated. Right atrium is mildly dilated. Aortic Valve The aortic valve is normal in structure. Mild aortic regurgitation. There is no aortic valvular stenosis. Mitral Valve Moderate mitral annular calcification. Trace mitral regurgitation. Mild to moderate mitral stenosis. Tricuspid Valve The tricuspid valve is normal in structure. Trace tricuspid regurgitation. estimated pa pressure 45 mm Hg Pulmonic Valve The pulmonary valve is normal in structure. [place] [address] 2 D/M-MODE ECHOCARDIOGRAM Name: MICHELLE CONCEPCION Room: [address]#: [id number] Admission: 01/24/18 Attend Phys: Kasie Galvan, Discharge: Date of : 68 Date of Service: 01/25/18 1428 Report #: [id number] regurgitation. Great Vessels The aortic root is normal in size. IVC is normal in size and collapses >50% with inspiration. Pericardium There is no pericardial effusion. <Conclusion> Mild to moderate concentric left ventricular hypertrophy. LVEF is 55-60%. Left atrium is severely dilated. Mild aortic regurgitation. Trace tricuspid regurgitation. estimated pa pressure 45 mm Hg <ELECTRONICALLY SIGNED> By: Prateek Aragon MD, FACC 01/25/18 1428 1428 1428 Prateek Aragon MD, FACC /INF
[2018-01-25 14:53] VITALS: BP 142/59
--- NOTE | 2018-01-25 15:39 | NUR ---
DIALYSIS COMPLETED.PT OK FOR DISCHARGE.PAPERWORK COMPLETED AND GIVEN TO PT.NO SCRIPTS GIVEN.METOPROLOL STOPPED PER DR. CONTRERAS-DUE TO BRADYCARDIA LOW THE 30S .PT TO RESUME NORMAL DIALYSIS DAYS //SUN.PT COMMUNICATES UNDERSTANDING.IV REMOVED.HEART MONITOR REMOVED AND RETURNED TO NURSING STATION.ALL PERSONAL BELONGINGS PACKED AND TAKEN WITH PT.PT WALKED OUT BY NURSING STAFF TO PERSONAL VEHICLE.
--- NOTE | 2018-01-28 09:09 | CON ---
[address] [address] CONSULTATION Name: MICHELLE CONCEPCION Room: [address] Robby Brown#: [id number] Admission: 01/24/18 Attend Phys: Kasie Galvan MD Discharge: 01/25/18 Date of : 68 Report #: [id number] THIS REPORT FOR: //name// CC: JULIANNA Galvan Physician staff DATE OF SERVICE: 01/25/2018 HISTORY OF PRESENT ILLNESS: The patient is a 47-year-old single white female who I was asked to see in the hospital today after she was noted to have an abnormal troponin. The patient developed renal failure about 4 years and has been on hemodialysis. She has a long history of chest pain. She has been seen in the past by my partner, Dr. Jaffe. She actually underwent a heart catheterization by Dr. Bethea a year ago in 12/2016 because of chest pain. This was performed from the right radial artery. Results showed minimal coronary artery disease with only 50% narrowing of the ostium of the diagonal branch. Ejection fraction was 45%. She actually had a nuclear stress test performed this summer here at [place] because of chest pain. There was no ischemia and normal ejection fraction. The patient was actually seen by my nurse practitioner in September. The patient was brought to the emergency room yesterday morning by paramedics. She was at dialysis when she complained of chest pain and left shoulder pain. She had been nauseated. She was admitted and Cardiology consultation was requested. PAST MEDICAL HISTORY: Otherwise significant for previous cholecystectomy, hysterectomy, hypertension, glucose intolerance. Apparently a week ago, she was admitted to [facility] with chest pain and was told that she had atrial fibrillation. She apparently converted to sinus rhythm. She then left AMA. CURRENT MEDICATIONS: Consists of metoprolol, hydralazine, Xanax, Nexium, Advair. ALLERGIES: SHE HAS INTOLERANCE TO MULTIPLE MEDICATIONS INCLUDING SULFA, TRAMADOL. FAMILY HISTORY: Negative for heart disease. SOCIAL HISTORY: She is from her . Currently, lives with her mother in [place], [place]. Smokes 2 packs of cigarettes a day. No alcohol abuse. 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 REVIEW OF SYSTEMS: She has had no history of stroke or asthma. She does have a history of peptic ulcer disease. No liver disease, no cancer. [place] [address] CONSULTATION Name: TRACEE OLIVERAMICHELLE Room: [address]#: [id number] Admission: 01/24/18 Attend Phys: Kasie Galvan MD Discharge: 01/25/18 Date of : 68 Report #: [id number] PHYSICAL EXAMINATION: GENERAL: Revealed a middle-aged female lying in bed. She appeared in no distress. VITAL SIGNS: She had a blood pressure of 140/60, pulse 60. She is afebrile. HEENT: She was anicteric, conjunctiva pink. Mucous membranes moist. NECK: Veins nondistended. Bilateral carotid bruits were heard. CHEST: Clear to auscultation. CARDIOVASCULAR: Regular rate without murmur. ABDOMEN: Soft. EXTREMITIES: Had no edema. Dorsalis pedis pulse could not be palpated. SKIN: Cool and dry. NEUROLOGIC: Nonfocal. Her ECG on admission yesterday showed a sinus rhythm, left ventricular hypertrophy, repolarization changes. LABORATORY DATA: Sodium 135, potassium 5.8, BUN 43, creatinine 6.5, alkaline phosphatase 208, SGPT 13, albumin 2.8. Troponin was 0.09, today it is less than 0.06. Her cholesterol 121, triglyceride 100, HDL 39, LDL 62. White blood cell count 6.7, hemoglobin 9.2, hematocrit 27.7. IMPRESSION AND RECOMMENDATIONS: 1. Chest pain. Atypical for angina. No evidence of acute myocardial infarction. Suspect chest pain is noncardiac. The patient had a heart catheterization a year ago showing no significant coronary artery disease. 2. Hypertension. The patient has been on hydralazine and beta jose. 3. Glucose intolerance. 4. Tobacco abuse. The patient continues to smoke. 5. End-stage renal disease. The patient is on hemodialysis. 6. Previous episode of atrial fibrillation. If recurrent, I would consider antiarrhythmic therapy. 7. Anemia. <ELECTRONICALLY SIGNED> By: Yasmany Jaffe MD, FACC 01/28/18 0909 1238 2216Prateek Aragon MD, FACC /nt
--- NOTE | 2018-02-22 10:12 | CON ---
[address] [address] CONSULTATION Name: TRACEE WESTBROOKMICHELLE WHALEY Room: [address]#: [id number] Admission: 01/24/18 Attend Phys: Kasie Galvan MD Discharge: 01/25/18 Date of : 68 Report #: [id number] THIS REPORT FOR: //name// CC: JULIANNA Galvan Physician staff DATE OF SERVICE: 01/25/2018 CONSULTING PHYSICIAN: Dr. Galvan. REASON FOR NEPHROLOGY CONSULTATION: End-stage renal disease, got partial dialysis treatment yesterday REASON FOR ADMISSION: Chest pain. HISTORY OF PRESENT ILLNESS: This is a 47-year-old female who has past medical history of end-stage renal disease, on hemodialysis every Sunday, and Sunday at [facility] under the care of Dr. Montelongo, came in with chest pain yesterday, which started during dialysis and she received partial dialysis treatment, likely she received only 2 hours of dialysis yesterday. The patient stated that last week she was at [facility], developed atrial fibrillation with RVR, got admitted on Sunday, but signed out AMA on Sunday. Those records are being obtained from [place]. Her potassium is 5.8 today. The patient did get some potassium in the ER yesterday. The patient is asymptomatic right now. ALLERGIES: ASPIRIN, CARBAMAZEPINE, IBUPROFEN, NAPROXEN, PROPOXYPHENE, RASPBERRY, SULFA, TRAMADOL, PROCHLORPERAZINE. REVIEW OF SYSTEMS: As mentioned in history of present illness. She is not having any symptoms right now. HOME MEDICATIONS: Include promethazine, ondansetron, ipratropium, cinacalcet, albuterol, gabapentin, metoprolol, hydralazine, alprazolam, Nexium, folic acid, oxycodone, fluticasone. PAST SURGICAL AND MEDICAL HISTORY: Includes hypertension; type 2 diabetes; COPD; bipolar disorder; end-stage renal disease, on hemodialysis every Sunday, , and Sunday; hyperkalemia; osteoporosis. SOCIAL HISTORY: She is a current every day smoker, does not use alcohol or recreational drugs. PHYSICAL EXAMINATION: VITAL SIGNS: Blood pressure is 142/59, pulse rate is 49, temperature is 37.1, [place] [address] CONSULTATION Name: MICHELLE CONCEPCION Room: [address]#: [id number] Admission: 01/24/18 Attend Phys: Kasie Galvan MD Discharge: 01/25/18 Date of : 68 Report #: [id number] respiration rate is 18, pulse ox is 99%. She is on room air. GENERAL: She is awake and alert, oriented x 3. HEAD, EYES, EARS, NOSE AND THROAT: Mucous membranes are moist. NECK: There is no JVD. CHEST: Clear to auscultation anteriorly. No crackles or wheezing. CARDIOVASCULAR: S1, S2 normal. No murmurs heard. ABDOMEN: Soft, nondistended and nontender. Bowel sounds are present. EXTREMITIES: Left extremity AV fistula has good bruit and thrill. Lower extremity, there is no swelling. NEUROLOGICAL: Gross neurological function is intact. PSYCHIATRIC: Mood and affect seem to be normal. LABORATORY DATA: Hemoglobin 9.2, platelet count is 204. Potassium is 5.8, sodium is 135, BUN is 43 and the labs are reviewed. IMAGING: Chest x-ray reviewed. ASSESSMENT: 1. End-stage renal disease, on hemodialysis, Sunday, , Sunday. 2. Hypertension. 3. Hyperkalemia, potassium 5.8 today. 4. Chest pain, mild elevation of troponin. 5. History of possible atrial fibrillation with rapid ventricular response. 6. Anemia of chronic kidney disease, hemoglobin 9.2. PLAN: 1. The patient received 2 hours of treatment yesterday and her potassium is 5.8 today. So, we will go ahead and dialyze her for 2 hours and try to remove 2 to 2.5 liters of fluid off of her and we will plan for dialysis again tomorrow. 2. We will give her erythropoietin 8000 units with dialysis to help with her anemia. Thank you for the consultation. We will continue to follow her for dialysis needs. <ELECTRONICALLY SIGNED> By: Mercedes Marte MD 02/22/18 1012 0936 [id number] Marte MD /nt
== END 2018-01-25 15:45 | disposition home or self-care (01) ==
LOC: M.ERS 08:36 → M.2W 09:38 → M.TBA-ER 09:38 → M.2W 16:51
PROVIDERS: Emergency Medicine Emergency Medical Services; ADMIT Internal Medicine
DX: I20.9 Angina pectoris, unspecified (principal); I12.0 Hypertensive chronic kidney disease with stage 5 chronic kidney disease or end stage renal disease; E11.22 Type 2 diabetes mellitus with diabetic chronic kidney disease; N18.6 End stage renal disease; E87.5 Hyperkalemia; D63.1 Anemia in chronic kidney disease; J44.9 Chronic obstructive pulmonary disease, unspecified; F31.9 Bipolar disorder, unspecified; M81.0 Age-related osteoporosis without current pathological fracture; I48.91 Unspecified atrial fibrillation; F17.210 Nicotine dependence, cigarettes, uncomplicated; I21.4 Non-ST elevation (NSTEMI) myocardial infarction; R79.89 Other specified abnormal findings of blood chemistry; Z99.2 Dependence on renal dialysis; Z79.4 Long term (current) use of insulin

== ENCOUNTER 2018-04-26 18:51 | Emergency (ER) | payer OTHER, MEDICAID ==
[~2018-04-26] VITALS: Ht 160 cm; Wt 81.7 kg
[2018-04-26] MEDS ORDERED: TRIMETHOPRIM /P10 M1 OTIC (19:26)
[2018-04-26 19:43] VITALS: BP 121/80
== END 2018-04-26 19:43 | disposition home or self-care (01) ==
LOC: M.ERS 18:51
DX: H60.93 Unspecified otitis externa, bilateral (principal); H61.22 Impacted cerumen, left ear; R09.81 Nasal congestion; F17.210 Nicotine dependence, cigarettes, uncomplicated; J44.9 Chronic obstructive pulmonary disease, unspecified; F31.9 Bipolar disorder, unspecified; I12.0 Hypertensive chronic kidney disease with stage 5 chronic kidney disease or end stage renal disease; E11.22 Type 2 diabetes mellitus with diabetic chronic kidney disease; N18.5 Chronic kidney disease, stage 5; M81.0 Age-related osteoporosis without current pathological fracture; Z88.6 Allergy status to analgesic agent; Z88.1 Allergy status to other antibiotic agents; Z88.8 Allergy status to other drugs, medicaments and biological substances; Z88.2 Allergy status to sulfonamides

== ENCOUNTER 2018-04-29 19:06 | Emergency (ER) | payer OTHER, MEDICAID ==
[~2018-04-29] VITALS: Ht 160 cm; Wt 81.7 kg
[~2018-04-29 19:06] MED LIST changes: +TRIMETHOPRIM /P10 M1 OTIC
[2018-04-29] MEDS ORDERED: PREDNISONE50 MG PO (20:11)
[2018-04-29] MEDS ORDERED: LEVAQUIN 750 M750 MG PO (20:11)
[2018-04-29 20:32] VITALS: BP 175/85
== END 2018-04-29 20:33 | disposition home or self-care (01) ==
LOC: M.ERS 19:06
DX: J40 Bronchitis, not specified as acute or chronic (principal); F31.9 Bipolar disorder, unspecified; I12.0 Hypertensive chronic kidney disease with stage 5 chronic kidney disease or end stage renal disease; E11.22 Type 2 diabetes mellitus with diabetic chronic kidney disease; N18.5 Chronic kidney disease, stage 5; J44.9 Chronic obstructive pulmonary disease, unspecified; M81.0 Age-related osteoporosis without current pathological fracture; F17.210 Nicotine dependence, cigarettes, uncomplicated; Z88.6 Allergy status to analgesic agent; Z99.2 Dependence on renal dialysis; Z88.1 Allergy status to other antibiotic agents; Z88.2 Allergy status to sulfonamides; Z88.8 Allergy status to other drugs, medicaments and biological substances; Z91.018 Allergy to other foods

== ENCOUNTER 2018-05-12 19:27 | Emergency (ER) | payer OTHER, MEDICAID ==
[~2018-05-12] VITALS: Ht 160 cm; Wt 78.5 kg
[2018-05-12 20:34] VITALS: BP 146/83
== END 2018-05-12 20:34 | disposition home or self-care (01) ==
LOC: M.ERS 19:27
DX: M25.511 Pain in right shoulder (principal); J44.9 Chronic obstructive pulmonary disease, unspecified; M81.0 Age-related osteoporosis without current pathological fracture; I12.0 Hypertensive chronic kidney disease with stage 5 chronic kidney disease or end stage renal disease; E11.22 Type 2 diabetes mellitus with diabetic chronic kidney disease; N18.5 Chronic kidney disease, stage 5; F17.210 Nicotine dependence, cigarettes, uncomplicated; Z99.2 Dependence on renal dialysis; Z88.1 Allergy status to other antibiotic agents; Z88.2 Allergy status to sulfonamides; Z88.6 Allergy status to analgesic agent; Z88.8 Allergy status to other drugs, medicaments and biological substances; Z91.018 Allergy to other foods

== ENCOUNTER 2018-12-10 16:34 | Emergency (ER) | payer OTHER, MEDICAID ==
[~2018-12-10] VITALS: Ht 162.6 cm; Wt 79.0 kg
[2018-12-10] MEDS ORDERED: MEDROL DOSPAK21 TA1 PO (17:41)
[2018-12-10 17:50] VITALS: BP 179/82
== END 2018-12-10 17:51 | disposition home or self-care (01) ==
LOC: M.ERS 16:34
DX: M25.512 Pain in left shoulder (principal); I12.0 Hypertensive chronic kidney disease with stage 5 chronic kidney disease or end stage renal disease; E11.22 Type 2 diabetes mellitus with diabetic chronic kidney disease; N18.5 Chronic kidney disease, stage 5; J44.9 Chronic obstructive pulmonary disease, unspecified; F31.9 Bipolar disorder, unspecified; M81.0 Age-related osteoporosis without current pathological fracture; F17.210 Nicotine dependence, cigarettes, uncomplicated; Z99.2 Dependence on renal dialysis; Z88.1 Allergy status to other antibiotic agents; Z88.6 Allergy status to analgesic agent; Z88.2 Allergy status to sulfonamides; Z91.018 Allergy to other foods

== ENCOUNTER 2019-05-20 12:49 | Inpatient (IN) | payer OTHER, MEDICAID ==
[~2019-05-20] VITALS: Ht 160 cm; Wt 83.3 kg
[2019-05-20] VITALS (22 sets, daily range): BP systolic 113–178; BP diastolic 35–89
[~2019-05-20 12:49] MED LIST changes: +MEDROL DOSPAK21 TA1 PO
[2019-05-20 13:30] LABS: HEMATOCRIT 28.6 % (37.0-47.0); HEMOGLOBIN 9.4 gm/dL (12.0-15.0); MCHC 32.7 g/dL (28.0-37.0); MCV 107.2 fL (80.0-100.0); MPV 7.8 fl. (7.2-11.1); NUCLEATED RBCS 2 /100WBC; PLATELET COUNT* 220 thou/uL (150-400); RBC 2.67 mil/uL (4.20-5.00); RDW-CV 19.8 % (10.5-14.5); WBC 10.2 thou/uL (4.0-11.0)
[2019-05-20 13:44] LABS: APTT 25.5 Seconds (25.0-31.3); INR 1.4; PROTIME 13.7 Seconds (9.20-11.50)
[2019-05-20 13:46] LABS: BE -4.1 mmol/L (-2 to +3); PO2 70.1 mmHg (75.0-100.0)
[2019-05-20 13:46] LABS: CALCIUM 9.4 mg/dL (8.5-10.1); CREATININE 10.4 mg/dL (0.6-1.3)
[2019-05-20 13:50] LABS: ALBUMIN 3.1 g/dL (3.4-5.0); TOTAL BILIRUBIN 0.7 mg/dL (<0.1-1.0)
[2019-05-20 13:51] LABS: PCO2 55.3 mmHg (35.0-45.0); pH 7.245 (7.340-7.450)
[2019-05-20 13:56] LABS: POTASSIUM 7.4 mmol/L (3.5-5.1)
[2019-05-20 13:57] LABS: ABSOLUTE EOSINOPHILS 0.1 thou/uL (0.0-0.7); ABSOLUTE MONOCYTES 0.1 thou/uL (0.0-1.2); PLATELET ESTIMATE ADEQUATE
[2019-05-20 18:24] LABS: BE -1.5 mmol/L (-2 to +3)
[2019-05-20 18:31] LABS: pH 7.293 (7.340-7.450)
[2019-05-20 18:32] LABS: PCO2 53.6 mmHg (35.0-45.0)
[2019-05-20 18:53] LABS: CALCIUM 9.8 mg/dL (8.5-10.1); CREATININE 10.4 mg/dL (0.6-1.3)
[2019-05-20 18:56] LABS: POTASSIUM 7.3 mmol/L (3.5-5.1)
--- NOTE | 2019-05-20 19:00 | NUR ---
RECEIVED REPORT FROM ED AND ASSUMED CARE OF PT @ 0029.PT IS DROWSY WITH INAPPROPRIATE WORDS.PT ON NONREBREATHER WHEN BROUGHT FROM ED BECAUSE PT REFUSED BIPAP.PT INTIATED ON BIPAP BECAUSE PT HARD TO AROUSE.DIALYSIS INTIATED UPON ARRIVAL TO ICU.PT REMAINS NPO.CALL LIGHT AND FALL PRECAUTIONS IN PLACE.WILL CONTINUE TO MONITOR FOR DURATION OF SHIFT.
[2019-05-20 20:45] LABS: BE 3.6 mmol/L (-2 to +3); PCO2 45.9 mmHg (35.0-45.0); PO2 111.3 mmHg (75.0-100.0); pH 7.414 (7.340-7.450)
[2019-05-21] VITALS (17 sets, daily range): BP systolic 90–167; BP diastolic 46–83
--- NOTE | 2019-05-21 04:07 | NUR ---
ASSUMED CARE AT 1900H, ON BIPAP AT 40% AND KEPT ON HER THE WHOLE NIGHT WITH NO DISTRESS. DIALYSIS DON WITH 3.5 LITERS OUT. PT STILL LETHURGIC BUT MORE RESPONSIVE AND ANSWERING QUESTIONS. UNABLE TO DO BEDSIDE SWALLOW, PT STILL NOT FULLY AWAKE. NO BLEEDING NOTED. THEY MIGHT DO ANOTHER DIALYSIS TODAY. HER SCHEDULED DIALYSIS WAS TUE, TH AND SAT. CONTINUE MONITORING AND TOWARD GOALS.
[2019-05-21 04:16] LABS: HEMATOCRIT 25.2 % (37.0-47.0); HEMOGLOBIN 8.4 gm/dL (12.0-15.0); MCH 34.7 pg (26.0-34.0); MCHC 33.5 g/dL (28.0-37.0); MCV 103.6 fL (80.0-100.0); MPV 7.4 fl. (7.2-11.1); RBC 2.43 mil/uL (4.20-5.00); RDW-CV 19.5 % (10.5-14.5); WBC 7.8 thou/uL (4.0-11.0)
[2019-05-21 04:27] LABS: ALBUMIN 2.8 g/dL (3.4-5.0); MAGNESIUM 1.9 mg/dL (1.8-2.4); TOTAL BILIRUBIN 0.6 mg/dL (<0.1-1.0); TOTAL PROTEIN 6.2 g/dL (6.4-8.2)
[2019-05-21 04:28] LABS: CREATININE 5.2 mg/dL (0.6-1.3); POTASSIUM 5.2 mmol/L (3.5-5.1)
[2019-05-21 05:54] LABS: PCO2 46.4 mmHg (35.0-45.0); PO2 79.8 mmHg (75.0-100.0); pH 7.388 (7.340-7.450)
--- NOTE | 2019-05-21 11:13 | NUR ---
CM ASSESSMENT: VISITED WITH PT IN ROOM. PT SLEEPY. PT WAS FOUND UNRESPONSIVE IN HER CAR AT A [employer] [employer]. PT HAS DIALYSIS AND SUNDAY AT [facility] IN [place]. PT LIVES WITH HER SON,BOYFRIEND AND A ROOMMATE. SHE IS INDEPENDENT WITH ALL ADLS AND DRIVES. CM WILL CONTINUE TO FOLLOW
[2019-05-21 17:10] LABS: CALCIUM 7.5 mg/dL (8.5-10.1); POTASSIUM 5.2 mmol/L (3.5-5.1)
[2019-05-21 17:11] LABS: CREATININE 6.6 mg/dL (0.6-1.3)
[2019-05-22] VITALS (16 sets, daily range): BP systolic 90–190; BP diastolic 41–95
--- NOTE | 2019-05-22 02:11 | NUR ---
ASSUMED CARE AT 1900H, ON NC AT 3LPM AND TOLERATED BUT PT BECAME TACHYPNIC ARROUND 0100H. ENCOURAGE HER MANY TIMES TO PUT THE BIPAP MASK AND DO BREATHING TREATEMENT BUT SHE REFUSED. ASKED HER TWICE IF SHE WANTS TO BE INTUBATED AND DO CPR IN CASE HER HEALTH DETERIORATE AND SHE SAID NO. 2ND NURSE WITNESS VERBALIZATION. INFORM HIMS AND DNR ORDER ENTERED.
[2019-05-22 04:02] LABS: HEMATOCRIT 28.5 % (37.0-47.0); HEMOGLOBIN 9.3 gm/dL (12.0-15.0); MCH 34.1 pg (26.0-34.0); MCHC 32.8 g/dL (28.0-37.0); MPV 8.1 fl. (7.2-11.1); RBC 2.74 mil/uL (4.20-5.00); RDW-CV 20.3 % (10.5-14.5); WBC 12.7 thou/uL (4.0-11.0)
--- NOTE | 2019-05-22 04:34 | NUR ---
PASSED 0400H, PT AGREED TO PUT HER BIPAP AND BREATHING TREATMENT.EARLY DOSE OF HYDRALAZINE GIVEN. PRN MED FOR ANXIETY GIVEN. CONTINUE MONITORING AND TOWARD GOALS.
[2019-05-22 04:56] LABS: CALCIUM 8.5 mg/dL (8.5-10.1); CREATININE 7.4 mg/dL (0.6-1.3); MAGNESIUM 2.1 mg/dL (1.8-2.4); POTASSIUM 4.9 mmol/L (3.5-5.1)
--- NOTE | 2019-05-22 10:00 | NUR ---
INT ROUNDS: PT ON DIALYSIS, BIPAP AND DROWSY. NO FAMILY PRESENT. PER NURSING HAD FEVER THIS AM. WILL FOLLOW
[2019-05-22 12:05] LABS: BE 4.2 mmol/L (-2 to +3); PCO2 36.2 mmHg (35.0-45.0); pH 7.497 (7.340-7.450)
[2019-05-22 12:08] LABS: PO2 56.6 mmHg (75.0-100.0)
[2019-05-22 12:11] LABS: INFLUENZA A ANTIGEN Positive (Negative); INFLUENZA B ANTIGEN Negative (Negative)
--- NOTE | 2019-05-22 16:23 | 2DMMODE ---
[place] [address] 2 D/M-MODE ECHOCARDIOGRAM Name: MICHELLE CONCEPCION Room: [address] IN .R.#: [id number] Admission: 05/20/19 Attend Phys: Kasie Galvan, Discharge: Date of : 68 Date of Service: 05/22/19 1621 Report #: [id number] THIS REPORT FOR: cc: LEE LANDON APRN, WENDI R APRN Holkins, John M. MD [facility] ~ APPROVED REPORT Study performed: 05/22/2019 14:22:49 EXAM: Comprehensive 2D, Doppler, and color-flow Echocardiogram Patient Location: In-Patient Room #: 002 Status: routine BSA: 1.86 HR: 100 bpm BP: 115/58 mmHg Rhythm: NSR Other Information Study Quality: Good Indications Dyspnea 2D Dimensions IVSd: 12.39 (7-11mm) LVOT Diam: 20.99 (18-24mm) LVDd: 46.59 mm PWd: 11.05 (7-11mm) Ascending Ao: 29.32 (22-36mm) LVDs: 27.76 (25-40mm) Aortic Root: 29.62 mm Volumes Left Atrial Volume (Systole) LA ESV Index: 56.80 mL/m2 Aortic Valve AoV Peak Leandro.: 2.54 m/s AO Peak Gr.: 25.79 mmHg LVOT Max P.93 mmHg AO Mean Gr.: 13.64 mmHg LVOT Mean P.24 mmHg LVOT Max V: 1.65 m/s AO V2 VTI: 33.51 cm LVOT Mean V: 1.05 m/s KIRSTY (VTI): 2.65 cm2 LVOT V1 VTI: 25.68 [place] [address] 2 D/M-MODE ECHOCARDIOGRAM Name: MICHELLE CONCEPCION Room: [address] IN [facility]#: [id number] Admission: 05/20/19 Attend Phys: Kasie Galvan, Discharge: Date of : 68 Date of Service: 05/22/19 1621 Report #: [id number] Mitral Valve MV Mean Gr.: 5.47 mmHg E/A Ratio: 0.82 MV Decel. Time: 372.13 ms MV E Max Leandro.: 1.44 m/s MV PHT: 107.92 ms MVA (PHT): 2.04 cm2 TDI E/Lateral E': 20.57 E/Medial E': 20.57 Medial E' Leandro.: 0.07 m/s Lateral E' Leandro.: 0.07 m/s Pulmonary Valve PV Peak Leandro.: 1.31 m/s PV Peak Gr.: 6.84 mmHg Left Ventricle The left ventricle is normal size. There is normal LV segmental wall motion. There is normal left ventricular wall thickness. Left ventricular systolic function is normal. The left ventricular ejection fraction is within the normal range. LVEF is 60%. Grade I - abnormal relaxation pattern. Right Ventricle The right ventricle is normal size. The right ventricular systolic function is normal. Atria Left atrium is moderately dilated. The right atrium size is normal. Aortic Valve Mild aortic valve sclerosis. No aortic regurgitation is present. No hemodynamically significant valvular aortic stenosis. Mitral Valve Severe mitral annular calcification. Trace to mild mitral regurgitation. Mild mitral stenosis. Tricuspid Valve The tricuspid valve is normal in structure. Unable to assess PA pressure. Trace tricuspid regurgitation. Pulmonic Valve The pulmonary valve is normal in structure. There is no pulmonic [place] [address] 2 D/M-MODE ECHOCARDIOGRAM Name: MICHELLE CONCEPCION Room: [address]#: [id number] Admission: 05/20/19 Attend Phys: Kasie Galvan, Discharge: Date of : 68 Date of Service: 05/22/19 1621 Report #: [id number] Great Vessels The aortic root is normal in size. IVC is normal in size and collapses >50% with inspiration. Pericardium There is no pericardial effusion. <Conclusion> The left ventricle is normal size. There is normal left ventricular wall thickness. Left ventricular systolic function is normal. The left ventricular ejection fraction is within the normal range. LVEF is 60%. Grade I - abnormal relaxation pattern. The right ventricle is normal size. Left atrium is moderately dilated. The right atrium size is normal. Mild aortic valve sclerosis. No aortic regurgitation is present. No hemodynamically significant valvular aortic stenosis. Severe mitral annular calcification. Trace to mild mitral regurgitation. Mild mitral stenosis. The tricuspid valve is normal in structure. IVC is normal in size and collapses >50% with inspiration. There is no pericardial effusion. There is normal LV segmental wall motion. <ELECTRONICALLY SIGNED> By: Pako Bethea MD, FACC 05/22/191620 20 20 Pako Bethea MD, FACC /INF
--- NOTE | 2019-05-22 20:50 | NUR ---
PT. WAS DNR AT BEGINNING SHIFT, WENT TO PUT PURPLE DNR BAND ON PT. AND SHE VERBALIZED UNDERSTANDING OF DNR STATUS. PT. HIT CALL LIGHT AFTER SISTER WAS VISITING IN ROOM, AND INSTRUCTED NURSE TO "TAKE THIS PURPLE BAND OFF, IT MEANS DO NOT RESUSCITATE, I DON'T WANT THAT". PT. STATED SHE WANTS "TUBE DOWN THROAT IF NEEDED AND CPR". CODE STATUS CHANGED TO FULL CODE.
--- NOTE | 2019-05-22 21:34 | NUR ---
PT. FLU A POSITIVE. DR. BURNS NOTIFIED, TAMIFLU ORDERED. PT. PUT IN DROPLET ISOLATION.
[2019-05-23] VITALS (8 sets, daily range): BP systolic 108–134; BP diastolic 51–67
[2019-05-23 04:11] LABS: HEMATOCRIT 27.6 % (37.0-47.0); HEMOGLOBIN 9.3 gm/dL (12.0-15.0); MCH 34.8 pg (26.0-34.0); MCHC 33.7 g/dL (28.0-37.0); MCV 103.1 fL (80.0-100.0); MPV 7.8 fl. (7.2-11.1); RBC 2.67 mil/uL (4.20-5.00); RDW-CV 20.9 % (10.5-14.5); WBC 9.1 thou/uL (4.0-11.0)
[2019-05-23 04:23] LABS: ALBUMIN 2.4 g/dL (3.4-5.0); CALCIUM 8.5 mg/dL (8.5-10.1); MAGNESIUM 1.9 mg/dL (1.8-2.4); POTASSIUM 4.5 mmol/L (3.5-5.1); TOTAL BILIRUBIN 0.6 mg/dL (<0.1-1.0); TOTAL PROTEIN 6.1 g/dL (6.4-8.2)
[2019-05-23 04:32] LABS: CREATININE 5.9 mg/dL (0.6-1.3)
--- NOTE | 2019-05-23 04:59 | NUR ---
PT. PROGRESSING TOWARDS GOALS. MUCH MORE AWAKE AND ALERT THIS SHIFT. ORIENTED X4. PT. HAD BLUE PILL CONTAINER FULL OF PILLS OUT ON COUNTER, INFORMED PT. THAT IS AGAINST HOSPITAL POLICY TO ALLOW PT'S HOME MEDS IN ROOM, EDUCATION GIVEN. PILL CONTAINER PUT IN SECURITY BAG AND WILL BE GIVEN TO PHARMACY WHEN THEY ARRIVE AT 0700. PT. HAD VERY SMALL BOWEL MOVEMENT, STATES SHE HAS NOT HAD BM IN 4 DAYS. PT. TOLERATED BIPAP OFF AND ON THROUGHOUT SHIFT. ON 5L AT THIS TIME. VITAL SIGNS STABLE/WNL. CALL LIGHT IN REACH, WILL CONTINUE TO MONITOR.
--- NOTE | 2019-05-23 11:00 | NUR ---
INT ROUNDS: PT TO MOVE TO TELE BED TODAY. MET WITH PT. SHE STATES SHE CAN'T REMEMBER WHAT HAPPENED EXCEPT SHE WAS GOING TO DIALYSIS AND SLUMPED OVER. [place] DISCUSSED HH VS SNF. SHE DECLINES SNF, STATES SHE HAS A NURSE THAT SEES HER BUT CANNOT REMEMBER NAME OF AGENCY, WANTS TO GO HOME AND CALL BACK WITH THE NAME. STATES THAT HER BF WOULDN'T BE ABLE TO FIND IT AT HOME. PT IS STILL ON O2, UNSURE OF THOSE NEEDS. ORDERS RECEIVED TO ARRANGE TRILOGY. PT IN AGREEMENT. CALLED AND FAXED INFO TO [facility] TO CHECK QUALIFYING STATUS. AWAIT CALL BACK
--- NOTE | 2019-05-23 14:31 | NUR ---
AT DC, WILL NEED TO CALL AND FAX DC SUMMARY,MEDS AND DIALYSIS FLOW SHEETS TO [facility] [phone] FAX [phone] TRILOGY SHOULD BE DELIVERED OVER WEEKEND BY [facility] [phone] PT STATES SHE NEEDS TO CONTACT AFTER DC WITH HER AGENCY NAME/NUMBER SHE CANNOT REMEMBER AND IT'S AT HOME
--- NOTE | 2019-05-23 15:51 | NUR ---
THIS CLOTH WEIGHER ASSUMED CARE OF PT AT 0700 PT PROGRESSED TOWARD GOALS AND WAS TRANSFERRED TO THE TELEY FLOOR ROOM 210 ALL BELONGINGS PACKED AND SENT WITH PT TRANSPORTED WHEELCHAIR VIA NURSING STAFF
--- NOTE | 2019-05-23 19:00 | NUR ---
ASSUMED PT CARE AT AROUND 1645 FROM ICU. ABLE TO MAKE NEEDS KNOWN. UP SBA. RESTING IN BED THE REST OF THE SHIFT. NO C/O PAIN OR DISCOMFORT. CALL LIGHT WITHIN REACH. WILL CONTINUE TO MONITOR.
[2019-05-24 00:32] VITALS: BP 129/59
[2019-05-24 04:08] VITALS: BP 150/69
[2019-05-24 05:12] LABS: HEMATOCRIT 28.5 % (37.0-47.0); HEMOGLOBIN 9.5 gm/dL (12.0-15.0); MCH 34.2 pg (26.0-34.0); MCHC 33.5 g/dL (28.0-37.0); MPV 8.1 fl. (7.2-11.1); RBC 2.79 mil/uL (4.20-5.00); RDW-CV 20.8 % (10.5-14.5); WBC 9.1 thou/uL (4.0-11.0)
[2019-05-24 05:25] LABS: CALCIUM 8.4 mg/dL (8.5-10.1); CREATININE 8.5 mg/dL (0.6-1.3); MAGNESIUM 2.1 mg/dL (1.8-2.4); POTASSIUM 5.2 mmol/L (3.5-5.1)
--- NOTE | 2019-05-24 07:39 | CON ---
[address] [address] CONSULTATION Name: MICHELLE CONCEPCION Room: [address] IN .R.#: [id number] Admission: 05/20/19 Attend Phys: Kasie Galvan MD Discharge: Date of : 68 Report #: [id number] THIS REPORT FOR: //name// cc: LEE LANDON APRN, WENDI R APRN ~ THIS REPORT FOR: //name// CC: Kasie LANDON DATE OF SERVICE: 05/21/2019 NEPHROLOGY CONSULTATION CONSULTING PHYSICIAN: Kasie Galvan MD REASON FOR NEPHROLOGY CONSULTATION: ESRD, hypervolemia and hyperkalemia. REASON FOR ADMISSION: Shortness of breath. HISTORY OF PRESENT ILLNESS: The patient is quite noncompliant dialysis patient. She [facility], , Sunday and she states that she was en route to her dialysis unit yesterday, but she was short of breath and came to the ER and chest x-ray showed fluid overload. Her potassium was 7.7. She was urgently dialyzed. She was admitted for acute hypoxic hypercarbic respiratory failure and hyperkalemia and fluid overload and she is doing much better. She is on 4 liters of oxygen, right now on nasal cannula. REVIEW OF SYSTEMS: As mentioned in history of present illness, otherwise 10-point review of systems are negative. ALLERGIES: COMPAZINE, TRAMADOL, SULFA, RASPBERRY, PROPOXYPHENE, NAPROXEN, IBUPROFEN, CARBAMAZEPINE, AMOXICILLIN AND ASPIRIN. HOME MEDICATIONS: Included ondansetron, methylprednisolone, ipratropium, promethazine, albuterol, gabapentin, hydralazine, alprazolam, pantoprazole, fluticasone, Solu-Medrol, and oxycodone. PAST MEDICAL AND SURGICAL HISTORY: Includes hypertension, diabetes, COPD, bipolar disorder, end-stage renal disease, hyperkalemia, osteoporosis. She has ESRD, otitis externa, and history of AFib. FAMILY HISTORY: Diabetes, hypertension. SOCIAL HISTORY: She smokes every day. [place] [address] CONSULTATION Name: MICHELLE CONCEPCION Room: [address]#: [id number] Admission: 05/20/19 Attend Phys: Kasie Galvan MD Discharge: Date of : 68 Report #: [id number] according to the patient's chart and no alcohol use reported. PHYSICAL EXAMINATION: VITAL SIGNS: Blood pressure is 162/72, respiratory rate is 20, pulse rate is 76, afebrile, pulse ox is on 4 liters of oxygen by nasal cannula 97%. GENERAL: She is awake, alert, oriented x 3. HEAD AND EYES: Atraumatic, normocephalic. EARS, NOSE, AND THROAT: Normal ears and nose. Mucous membranes are moist. NECK: No JVD. CHEST: Bilaterally diminished breath sounds posteriorly. No crackles. CARDIOVASCULAR: S1, S2 normal. No murmurs. ABDOMEN: Soft, nondistended, nontender. Bowel sounds are present. EXTREMITIES: Lower extremities, there is no lower extremity edema. DIALYSIS ACCESS: Left arm AV fistula with good bruit and thrill. NEUROLOGICAL FUNCTION: Gross neurological function is intact. PSYCHIATRIC: Mood seems to be normal mood montgomery, she seems to be depressed. LABORATORY DATA: WBC 7.8, hemoglobin is 8.4, platelet count is 141, sodium was 138, potassium is 5.8, was 7.4 on admission. Other labs are reviewed. IMAGING: Chest x-ray was reviewed. ASSESSMENT: 1. End-stage renal disease, on hemodialysis Sunday, and Sunday. 2. Admitted with fluid overload. 3. The patient was admitted with hyperkalemia. 4. Anemia of chronic kidney disease. 5. Noncompliant with dialysis treatment and diet medications. 6. Chronic obstructive pulmonary disease with acute exacerbation, acute hypoxic and hypercarbic respiratory failure. 7. Lactic acidosis. 8. Bipolar disorder. 9. History of diabetes type 2, primary team is managing. 10. History of atrial fibrillation. 11. Hypertension. Blood pressure is better controlled. PLAN: 1. She was dialyzed yesterday and yesterday was a dialysis day and there is no acute need for dialysis today. Dialysis will be tomorrow. 2. One liter a day of fluid restriction and that she should be on a renal diet. 3. For her anemia, we will give her Epogen. [address] [place] [address] CONSULTATION Name: MICHELLE CONCEPCION Room: [address] IN M.R.#: [id number] Admission: 05/20/19 Attend Phys: Kasie Galvan MD Discharge: Date of : 68 Report #: [id number] Thank you for this consultation. We will continue to follow with you for dialysis needs. <ELECTRONICALLY SIGNED> By: Mercedes Marte MD 05/24/19 0739 1014 [id number] Marte MD /nt
[2019-05-24 08:00] VITALS: BP 159/76
--- NOTE | 2019-05-24 08:11 | NUR ---
ASSUMED PATIENT CARE AT 1900. ASSESSMENT COMPLETED CHARTED. PATIENT IS NSR ON THE MONITOR. HOURLY ROUNDING IN PLACE FOR PATIENT SAFETY. CLWR.
--- NOTE | 2019-05-24 19:00 | NUR ---
ASSUMED PT CARE AT 0730. ASSESSMENT COMPLETED CHARTED. ABLE TO MAKE NEEDS KNOWN. UP WITH SBA. C/O CHRONIC BACK PAIN AND GAVE PRN PAIN MEDS PER EMAR. DIALYSIS TODAY. CALL LIGHT WITHIN REACH. WILL CONTINUE TO MONITOR.
[2019-05-24 20:00] VITALS: BP 142/73
[2019-05-25 00:30] VITALS: BP 111/59
[2019-05-25 04:30] VITALS: BP 136/54
[2019-05-25 04:47] LABS: HEMATOCRIT 28.3 % (37.0-47.0); HEMOGLOBIN 9.6 gm/dL (12.0-15.0); MCH 34.3 pg (26.0-34.0); MCHC 33.7 g/dL (28.0-37.0); MCV 101.8 fL (80.0-100.0); MPV 8.2 fl. (7.2-11.1); RBC 2.78 mil/uL (4.20-5.00); RDW-CV 20.5 % (10.5-14.5); WBC 9.5 thou/uL (4.0-11.0)
[2019-05-25 04:59] LABS: CALCIUM 8.8 mg/dL (8.5-10.1); MAGNESIUM 2.1 mg/dL (1.8-2.4); PHOSPHORUS* 4.6 mg/dL (2.5-4.9); POTASSIUM 5.2 mmol/L (3.5-5.1)
[2019-05-25 05:05] LABS: CREATININE 5.2 mg/dL (0.6-1.3)
[2019-05-25 08:00] VITALS: BP 128/57
--- NOTE | 2019-05-25 08:12 | NUR ---
ASSUMED PATIENT CARE AT 1900. ASSESSMENT COMPLETED CHARTED. PATIENT IS ST ON THE MONITOR. HOURLY ROUNDING IN PLACE FOR PATIENT SAFETY. CLWR.
[2019-05-25 12:00] VITALS: BP 139/70
[2019-05-25] MEDS ORDERED: CALCIUM ACETAT667 MG PO (13:28)
[2019-05-25 16:00] VITALS: BP 123/53
--- NOTE | 2019-05-25 19:00 | NUR ---
ASSUMED PT CARE AT 0730. ASSESSMENT COMPLETED CHARTED. ABLE TO MAKE NEEDS KNOWN. UP AD ELSI. C/O RIGHT RIB AND BACK PAIN AND GAVE PRN PAIN MEDS PER EMAR. PT UPSET THAT SHE ISNT DOING BETTER SO SHE CAN GO WITHOUT O2. CALL LIGHT WITHIN REACH. WILL CONTINUE TO MONITOR.
[2019-05-25 20:00] VITALS: BP 120/83
[2019-05-26 01:30] VITALS: BP 166/77
[2019-05-26 08:00] VITALS: BP 163/69
--- NOTE | 2019-05-26 08:31 | NUR ---
ASSUMED PATIENT CARE AT 1900. ASSESSMENT COMPLETED CHARTED. PATIENT IS SR/ST ON THE MONITOR. HOURLY ROUNDING IN PLACE FOR PATIENT SAFETY. CLWR.
[2019-05-26] MEDS ORDERED: ADVAIR 250-501 EACH INH (09:23)
[2019-05-26] MEDS ORDERED: PREDNISONE 10 M10 MG PO (09:23)
[2019-05-26] MEDS ORDERED: TAMIFLU30 MG PO (09:23)
[2019-05-26 11:05] VITALS: BP 108/51
[2019-05-26 11:33] VITALS: BP 108/51
--- NOTE | 2019-05-26 11:35 | NUR ---
Pt discharging to home today, Pt needs home o2, faxed referral to Dinorah at [facility], Pt needing 6L with activity. HH referral sent to [facility]. CM to fax flowsheets and H&P to [facility]. CM explained to Pt that with her high liter flow, she will need to make sure that she keeps extra tanks with her at all times, Pt voiced understanding. Pt's trilogy in room. Family to transport.
[2019-05-26] MEDS ORDERED: BENTYL 10 MG CA10 M1 PO (12:08)
[2019-05-26 12:14] VITALS: BP 126/59
--- NOTE | 2019-05-26 14:00 | NUR ---
ASSUMED PT CARE AT 0730. ASSESSMENT COMPLETED CHARTED. ABLE TO MAKE NEEDS KNOWN. C/O PAIN IN BACK AND SIDE. UP AD ELSI. DISCHARGE APPROVED. DISCHARGE PAPERWORK, MEDS AND MED INFO GIVEN. IV AND HEART MONITOR REMOVED. PT FAMILY MEMBERS KEPT COMING TO DESK ASKING WHEN PT COULD BE D/C. PT LEFT BY WHEELCHAIR AROUND 1348 WITH ALL BELONGINGS. NO COMMENTS, QUESTIONS, OR CONCERNS NOTED.
--- NOTE | 2019-05-26 15:08 | PATH ---
[address] [address] PATHOLOGY RPT PROCEDURE Name: TRACEE OLIVERAMICHELLE Room: [address]#: [id number] Admission: 05/20/19 Date of : 68 Discharge: 05/26/19 Report #: [id number] Path Case #: [id number] Note [facility] Accession Number: [id number] TESTS RESULT FLAG UNITS REF RANGE LAB Clinician Provided Cytology Information No. of containers..01 Other (Miscellaneous) Source: SPUTUM DIAGNOSIS: 02 SPUTUM INCONCLUSIVE, WITH RARE ATYPICAL CELLS PRESENT. ABUNDANT PULMONARY MACROPHAGES (DUST CELLS), MANY WITH GRANULAR PIGMENT SUGGESTING HEMOSIDERIN, ABUNDANT SQUAMOUS CELLS, FEW INFLAMMATORY CELLS AND FEW YEAST ELEMENTS COMPATIBLE WITH KETTY SPECIES PRESENT. Signed out by: 02 Edouard Giron MD, Pathologist NPI- [id number] Performed by: 01 Mak Coker, [employer]orter [employer] ([facility]) Gross description: 01 3ML, THICK LIGT BRW, 1 TP /LCS 05/23/2019 1448 Local FLAG LEGEND: L-Low Normal,H-High Normal,LL-Alert Low,HH-Alert High <-Panic Low,>-Panic High,A-Abnormal,AA-Critical Abnormal Performed at: [address] [place] [address] Jonathan Kellogg MD, [address] [place] [address] [place] [address] Edouard Giron MD, Specimen Comment: A courtesy copy of this report has been sent to [phone] Performed at: [address], [place], [place] [id number] MD Jonathan Kellogg MD Phone: [phone]
[2019-05-27 12:07] LABS: HEPATITIS B SURFACE AG Negative (Negative)
== END 2019-05-26 13:28 | disposition home health service (06) | DRG 871 ==
LOC: M.ERS 12:49 → M.ICU 14:30 → M.2W 14:30 → M.TBA-ER 14:30 → M.ICU 15:57 → M.2W 05-23 16:00
PROVIDERS: Internal Medicine; Internal Medicine Pulmonary Disease; Personal Emergency Response Attendant; ADMIT Internal Medicine
DX: A41.89 Other specified sepsis (principal); G92 Toxic encephalopathy; N18.6 End stage renal disease; J10.00 Influenza due to other identified influenza virus with unspecified type of pneumonia; J96.21 Acute and chronic respiratory failure with hypoxia; J96.22 Acute and chronic respiratory failure with hypercapnia; J44.1 Chronic obstructive pulmonary disease with (acute) exacerbation; E87.2 Acidosis; F11.20 Opioid dependence, uncomplicated; J44.0 Chronic obstructive pulmonary disease with (acute) lower respiratory infection; R04.2 Hemoptysis; J84.9 Interstitial pulmonary disease, unspecified; I13.2 Hypertensive heart and chronic kidney disease with heart failure and with stage 5 chronic kidney disease, or end stage renal disease; E11.22 Type 2 diabetes mellitus with diabetic chronic kidney disease; I50.9 Heart failure, unspecified; D63.1 Anemia in chronic kidney disease; F31.9 Bipolar disorder, unspecified; M81.0 Age-related osteoporosis without current pathological fracture; I48.91 Unspecified atrial fibrillation; F17.210 Nicotine dependence, cigarettes, uncomplicated; E83.39 Other disorders of phosphorus metabolism; E87.5 Hyperkalemia; Z99.2 Dependence on renal dialysis; Z91.15 Patient's noncompliance with renal dialysis; Z91.14 Patient's other noncompliance with medication regimen; Z79.4 Long term (current) use of insulin; Z79.2 Long term (current) use of antibiotics; Z79.899 Other long term (current) drug therapy; Z79.51 Long term (current) use of inhaled steroids; Z88.1 Allergy status to other antibiotic agents; Z88.2 Allergy status to sulfonamides; Z88.8 Allergy status to other drugs, medicaments and biological substances; Z91.048 Other nonmedicinal substance allergy status; Z90.49 Acquired absence of other specified parts of digestive tract; Z82.49 Family history of ischemic heart disease and other diseases of the circulatory system; Z83.3 Family history of diabetes mellitus